=== PATIENT | male | born 1970 | race Caucasian/White ===

== ENCOUNTER 2017-04-23 18:48 | Emergency (ER) | payer MEDICAID ==
[~2017-04-23] VITALS: Ht 177.8 cm; Wt 85.0 kg
[~2017-04-23 18:48] MED LIST: CLIN-79 PO; DIPH-423 PO; ONDA4TAB6 PO
[2017-04-23] MEDS ORDERED: ringers solution, lactated 1000ml IV soln IV ONE (19:35)
[2017-04-23 23:06] VITALS: BP 138/76
== END 2017-04-23 23:09 | disposition home or self-care (01) ==
LOC: ER 18:48
DX: F10.129 Alcohol abuse with intoxication, unspecified (principal); E11.9 Type 2 diabetes mellitus without complications; F15.10 Other stimulant abuse, uncomplicated; Z79.899 Other long term (current) drug therapy; Y90.9 Presence of alcohol in blood, level not specified
CPT/HCPCS: 96360; 96361; 99285; J7120

== ENCOUNTER 2018-04-26 17:34 | Emergency (ER) | payer MEDICAID ==
[~2018-04-26] VITALS: Ht 172.7 cm; Wt 69.2 kg
[~2018-04-26 17:34] MED LIST changes: -CLIN-79 PO; +CLIN150C8 PO
[2018-04-26 18:26] VITALS: BP 163/99
[2018-04-26] MEDS ORDERED: SULF1TAB49 PO (19:04)
[2018-04-26] MEDS ORDERED: CEPH-572 PO (19:04)
== END 2018-04-26 19:04 | disposition home or self-care (01) ==
LOC: ER 17:35
DX: H57.89 Other specified disorders of eye and adnexa (principal); F12.90 Cannabis use, unspecified, uncomplicated; Z79.899 Other long term (current) drug therapy
CPT/HCPCS: 99283

== ENCOUNTER 2018-05-23 11:15 | Emergency (ER) | payer MEDICAID ==
[~2018-05-23] VITALS: Ht 170.2 cm; Wt 75.0 kg
[2018-05-23 11:46] VITALS: BP 145/83
[2018-05-23] MEDS ORDERED: methylPREDNISolone sod succ 125mg/2ml vial IM ONE (12:20)
[2018-05-23] MEDS ORDERED: diphenhydrAMINE 25mg capsule PO ONE (12:20)
[2018-05-23] MEDS ORDERED: PRED20TA PO (12:20)
== END 2018-05-23 13:21 | disposition home or self-care (01) ==
LOC: ER 11:16
DX: T78.40XA Allergy, unspecified, initial encounter (principal); F12.90 Cannabis use, unspecified, uncomplicated; Z88.1 Allergy status to other antibiotic agents; X58.XXXA Exposure to other specified factors, initial encounter
CPT/HCPCS: 96372; 99283; J2930; Q0163

== ENCOUNTER 2018-06-06 17:08 | Emergency (ER) | payer MEDICAID ==
[~2018-06-06] VITALS: Ht 167.6 cm; Wt 94.0 kg
[2018-06-06 17:35] VITALS: BP 141/82
[2018-06-06] MEDS ORDERED: CEPH-571 PO (17:37)
[2018-06-06] MEDS ORDERED: NAPR-56 PO (17:37)
== END 2018-06-07 | disposition home or self-care (01) ==
LOC: ER 06-07 02:42
DX: K08.89 Other specified disorders of teeth and supporting structures (principal); K06.1 Gingival enlargement; K08.409 Partial loss of teeth, unspecified cause, unspecified class; F12.90 Cannabis use, unspecified, uncomplicated; Z88.1 Allergy status to other antibiotic agents; Z79.899 Other long term (current) drug therapy
CPT/HCPCS: 99283

== ENCOUNTER 2018-08-31 09:44 | Emergency (ER) | payer MEDICAID, OTHER ==
[~2018-08-31] VITALS: Ht 170.2 cm; Wt 86.4 kg
[~2018-08-31 09:44] MED LIST changes: +CEPH-571 PO
[2018-08-31 09:48] VITALS: BP 122/71
[2018-08-31] MEDS ORDERED: BACDS PO (10:19)
== END 2018-08-31 10:44 | disposition home or self-care (01) ==
LOC: ER 09:44
DX: L02.414 Cutaneous abscess of left upper limb (principal); L03.114 Cellulitis of left upper limb; F12.90 Cannabis use, unspecified, uncomplicated; Z86.14 Personal history of Methicillin resistant Staphylococcus aureus infection; Z88.1 Allergy status to other antibiotic agents; Z79.899 Other long term (current) drug therapy; Z79.2 Long term (current) use of antibiotics
CPT/HCPCS: 99283

== ENCOUNTER 2024-04-29 06:52 | Emergency (ER) | payer MEDICAID, OTHER ==
[~2024-04-29] VITALS: Ht 167.6 cm; Wt 97.3 kg
[~2024-04-29 06:52] MED LIST changes: +CLIN-214 PO; -CLIN150C8 PO
[2024-04-29 07:14] VITALS: BP 146/96; PULSE 98; RESP 16; TEMP 99.1; O2SAT 96
[2024-04-29 08:05] LABS: BILIRUBIN,URINE NEGATIVE (Neg); CLARITY,URINE CLEAR (Clear); COLOR,URINE YELLOW (Yellow); GLUCOSE, URINE NEGATIVE (Neg); KETONES,URINE NEGATIVE (Neg); LEUKOCYTE ESTERASE ,URINE NEGATIVE (Neg); NITRITES, URINE NEGATIVE (Neg); OCCULT BLOOD,URINE TRACE-INTACT (Neg); PROTEIN,URINE NEGATIVE (Neg); UROBILINOGEN,URINE 0.2 E.U/dL (0.2-1.0)
[2024-04-29 08:07] LABS: UA COLLECTION TYPE NON-SPECIFIED
[2024-04-29 08:11] LABS: BACTERIA,URINE FEW /HPF (Neg); SQUAMOUS EPITHELIAL CELL,UR FEW /LPF (FEW); WBC,URINE 0-4 /HPF (0-4)
== END 2024-04-29 09:20 | disposition left against medical advice (07) ==
LOC: ER 06:53
DX: R33.9 Retention of urine, unspecified (principal); Z88.1 Allergy status to other antibiotic agents; Z53.21 Procedure and treatment not carried out due to patient leaving prior to being seen by health care provider
CPT/HCPCS: 81001

== ENCOUNTER 2024-11-02 12:27 | Emergency (ER) | payer MEDICAID ==
[~2024-11-02] VITALS: Ht 170.2 cm; Wt 106.7 kg
--- NOTE | 2024-11-02 12:59 | Physician Documentation ---
History of Present Illness ~ Chief Complaint: Abscess Stated Complaint: ABSCESS Time Seen by MD: 12:46 Primary Medical Doctor: None HPI Patient is a 54-year-old male that presents to the emergency department for evaluation of to mosquito bites and he sustained over the last couple days that have now become infected per him. Reports that they were itching persistently and he has been scratching them causing them to break open and start to ooze. 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 Denies any significant past medical history or taking any medications at this time other than Lipitor. Tetanus Within 5 Years: No Medication Reconciliation Allergies: Coded Allergies: clindamycin (Verified Allergy, Unknown, 04/29/24) Scheduled Cephalexin (Keflex), 1 CAP PO Q6H Clindamycin HCl (Clindamycin HCl CAPSULE), 3 CAP PO QID Ondansetron Hcl (Zofran), 1 TAB PO Q6H Scheduled PRN Diphenhydramine Hcl (Benadryl), 25 MG PO Q6H PRN ITCHING PRN for itching Past Medical History Past Medical History: MRSA Abscess Past Surgical History: no surgical history Alcohol Use: Abuse Drug Use: marijuana Lives with: Family Lives In: Home Occupation: employed Review of Systems ROS As stated above in the HPI, otherwise all systems are reviewed and negative. Physical Exam Vital Signs: Temperature: 98.3, Source: Oral, Heart Rate: 115, Respiratory Rate: 16, BP: 159/116, Pulse Oximetry: 95, Weight: 106.700 Oxygen Flow Rate: 0 Physical Exam VITALS: Reviewed and as above. GENERAL: Alert, no apparent distress. HEENT: Normocephalic, atraumatic, PERRL, EOMI, dry mucosa, no erythema RESPIRATORY: Lungs clear, normal breath sounds, no respiratory distress. CHEST: No accessory muscle use, no retractions CV: Regular rate, rhythm, no edema, no murmur, No: JVD GI: Soft, non-tender, bowels sounds present, no rebound, guarding, or rigidity BACK: No CVA tenderness, or swelling MUSCULOSKELETAL No deformities, no edema SKIN: Warm and dry, two small areas of erythema consistent with infected mosquito bites NEURO: Oriented x4, No motor or sensory deficit PSYCH: Normal mood and affect, no agitation Progress Results/Orders Results/Orders Vital Signs 11/02/24 12:28 Temp 98.3 Pulse 115 Resp 16 B/P (MAP) 159/116 Pulse Ox 95 O2 Flow Rate 0 Medical Decision Making Findings This patient who presents with rash for 2 days consistent with possible mosquito bites. History and exam findings not consistent with dangerous etiologies of rash such as SJS/TEN, or secondary dangerous causes such as petechial rashes from thrombocytopenia or rickettsial infections. Rash does not appear urticarial with no signs of anaphylaxis either. Plan at this time is to treat symptomatically and with a course of Bactrim due to the patient's hx of Staph infections. To provide her with instructions to follow up with primary care provider or return to the emergency department if symptoms worsen. Differential Dx:Considerations: Include: Abscess, Bacteremia, Cellulitis, Erysipelas, Felon, Gas gangrene, Hidrademitis suppurativa, Impetigo, Lymphangitis, Osteromyelitis, Paronychia, Septicemia, Other Departure Disposition: HOME / SELF CARE / HOMELESS Impression: Primary Impression: Rash Additional Impression: Wound Condition: Stable Discharge Instructions: [facility] Rash Referrals: NO PRIMARY CARE PROVIDER (PCP) Prescriptions Doxycycline Hyclate (Doxycycline Hyclate) 100 Mg Capsule 1 CAP PO Q12H for 10 Days, #20 CAP Prov: JUDY VALDEZ 11/02/24 Education Educated: Patient Educated regarding: treatment, need for follow up JUDY VALDEZ Nov 02, 2024 12:59
[2024-11-02] MEDS ORDERED: DOXY-1 PO (13:06)
[2024-11-02 13:15] VITALS: BP 156/82; PULSE 98; RESP 16; TEMP 98.3; O2SAT 98
== END 2024-11-02 13:19 | disposition home or self-care (01) ==
LOC: ER 12:28
DX: T14.8XXA Other injury of unspecified body region, initial encounter (principal); R21 Rash and other nonspecific skin eruption; F12.90 Cannabis use, unspecified, uncomplicated; F10.10 Alcohol abuse, uncomplicated; Z88.1 Allergy status to other antibiotic agents; Z86.19 Personal history of other infectious and parasitic diseases; Z79.899 Other long term (current) drug therapy; Y90.9 Presence of alcohol in blood, level not specified; W57.XXXA Bitten or stung by nonvenomous insect and other nonvenomous arthropods, initial encounter; Y93.89 Activity, other specified; Y92.89 Other specified places as the place of occurrence of the external cause; Y99.8 Other external cause status
CPT/HCPCS: 87070; 87075; 87077; 87102; 87186; 99283